=== PATIENT | male | born 1980 | race Hispanic/Latino ===

== ENCOUNTER 2024-10-19 15:52 | Emergency (ER) | payer OTHER ==
[~2024-10-19] VITALS: Ht 165.1 cm; Wt 91.5 kg
[2024-10-19] MEDS ORDERED: HOME MED LIST COMPLETE! XX SCH (18:10)
[2024-10-19 19:30] VITALS: BP 124/79; TEMP 97.7; O2SAT 100
[2024-10-19] MEDS ORDERED: PRED20TA PO (20:06)
[2024-10-19] MEDS: IBUPROFEN 600 MG TAB PO ONE (20:25)
== END 2024-10-19 20:32 | disposition home or self-care (01) ==
LOC: M ED 15:52
DX: G56.01 Carpal tunnel syndrome, right upper limb (principal); M25.531 Pain in right wrist; F17.210 Nicotine dependence, cigarettes, uncomplicated; F10.10 Alcohol abuse, uncomplicated; Z79.52 Long term (current) use of systemic steroids